=== PATIENT | male | born 1970 | race Caucasian/White ===

== ENCOUNTER 2019-12-22 22:03 | Emergency (ER) | payer MEDICAID ==
[~2019-12-22] VITALS: Ht 167.6 cm; Wt 71.2 kg
[2019-12-22 22:14] VITALS: Ht 167.6 cm; Wt 71.2 kg
[2019-12-23 02:10] LABS: UA SPECIFIC GRAVITY >=1.030 (1.005-1.035); microscopic required? YES; urine erythrocyte NEGATIVE (NEGATIVE)
[2019-12-23 02:14] LABS: BASOPHIL % 0.1 % (0-2); RED CELL DISTRIBUTION WIDTH 12.6 % (11.5-14.5)
[2019-12-23 02:17] LABS: PLATELET COUNT 484 x10^3mcL (130-400)
[2019-12-23 02:28] LABS: CALCIUM 8.8 mg/dL (8.5-10.1); CARBON DIOXIDE 31.1 mmol/L (21-32); CHLORIDE SERUM 102 mmol/L (98-107); CREATININE SERUM 1.1 mg/dL (0.7-1.3); GFR1 > 60 mL/min; GLUCOSE SERUM 126 mg/dL (74-106); POTASSIUM SERUM 3.4 mmol/L (3.5-5.1); SODIUM SERUM 140 mmol/L (136-145)
[2019-12-23 02:32] LABS: ALKALINE PHOSPHATASE 67 U/L (46-116); ALT/SGPT 15 U/L (16-63); AST/SGOT 7 U/L (15-37); BILIRUBIN DIRECT 0.08 mg/dL (0.0-0.2); BILIRUBIN TOTAL 0.21 mg/dL (0.20-1.00); LIPASE 127 IU/L (73-393); TOTAL PROTEIN, SERUM 7.5 g/dL (6.4-8.2)
[2019-12-23 05:20] VITALS: BP 103/69
== END 2019-12-23 05:20 | disposition home or self-care (01) ==
LOC: ED 22:03
PROVIDERS: Student in an Organized Health Care Education/Training Program
DX: N45.1 Epididymitis (principal); N45.2 Orchitis; R36.9 Urethral discharge, unspecified
CPT/HCPCS: 87491; 87591; J0696; J2270; J2405; Q0092

== ENCOUNTER 2020-03-22 21:58 | Emergency (ER) | payer MEDICAID ==
[~2020-03-22] VITALS: Ht 167.6 cm; Wt 73.9 kg
[2020-03-22 22:04] VITALS: Ht 167.6 cm; Wt 73.9 kg
[2020-03-23 02:34] VITALS: BP 110/67
== END 2020-03-23 01:00 | disposition home or self-care (01) ==
LOC: ED 21:58
DX: L02.411 Cutaneous abscess of right axilla (principal)

== ENCOUNTER 2020-03-24 00:24 | Emergency (ER) | payer MEDICAID ==
[~2020-03-24] VITALS: Ht 167.6 cm; Wt 72.7 kg
[2020-03-24 00:49] VITALS: Ht 167.6 cm; Wt 72.7 kg
[2020-03-24 03:48] VITALS: BP 128/76
== END 2020-03-24 03:48 | disposition home or self-care (01) ==
LOC: ED 00:24
DX: L02.213 Cutaneous abscess of chest wall (principal)
CPT/HCPCS: J0696

== ENCOUNTER 2020-04-21 02:37 | Emergency (ER) | payer MEDICAID ==
[~2020-04-21] VITALS: Ht 170.2 cm; Wt 72.6 kg
[2020-04-21 03:01] VITALS: Ht 170.2 cm; Wt 72.6 kg
[2020-04-21 04:53] VITALS: BP 131/97
== END 2020-04-21 04:53 | disposition home or self-care (01) ==
LOC: ED 02:37
DX: R07.89 Other chest pain (principal); M79.10 Myalgia, unspecified site; Z48.01 Encounter for change or removal of surgical wound dressing
CPT/HCPCS: J1885

== ENCOUNTER 2020-07-09 23:21 | Emergency (ER) | payer MEDICAID, SELFPAY ==
[~2020-07-09] VITALS: Ht 167.6 cm; Wt 70.3 kg
[2020-07-09 23:24] VITALS: Ht 167.6 cm; Wt 70.3 kg
[2020-07-10 01:50] LABS: PLATELET COUNT 364 x10^3mcL (152-348); RED CELL DISTRIBUTION WIDTH 14.5 % (12.1-16.2)
[2020-07-10 01:56] LABS: CALCIUM 8.8 mg/dL (8.5-10.1); CARBON DIOXIDE 27.4 mmol/L (21-32); CHLORIDE SERUM 101 mmol/L (98-107); CREATININE SERUM 0.9 mg/dL (0.7-1.3); GFR1 > 60 mL/min; GLUCOSE SERUM 99 mg/dL (74-106); POTASSIUM SERUM 3.8 mmol/L (3.5-5.1); SODIUM SERUM 138 mmol/L (136-145)
[2020-07-10 02:28] VITALS: BP 123/89
== END 2020-07-10 02:28 | disposition home or self-care (01) ==
LOC: ED 23:21
PROVIDERS: Emergency Medicine
DX: J40 Bronchitis, not specified as acute or chronic (principal); Z20.828 Contact with and (suspected) exposure to other viral communicable diseases
CPT/HCPCS: 99406; U0003